=== PATIENT | female | born 1940 ===

== ENCOUNTER 2016-10-10 15:44 | Emergency (ER) | payer MEDICARE, MEDICAID ==
[2016-10-10 15:44] VITALS: BMI 39.6
[2016-10-10 16:19] VITALS: RESP 18; TEMP 97.9
--- NOTE | 2016-10-10 19:17 | C.PDOC ---
History Of Present Illness 76 year old patient, with a past medical history of arthritis, asthma, back problems, hypertension, hypercholesterolemia, hyperlipidemia, and gastritis, presents to the ED complaining of occasional dizziness and feeling lethargic. Patient denies any shortness of breath, numbness, weakness, or any other complaints at this time. Time Seen by Provider: 10/10/16 19:08 Chief Complaint (Nursing): Dizziness/Lightheaded History Per: Patient History/Exam Limitations: no limitations Onset/Duration Of Symptoms: Other (occasional) Current Symptoms Are (Timing): Still Present Fall Associated With With Symptoms: No Severity: Mild Pain Scale Rating Of: 2 Recent travel outside of the [place]: No Past Medical History Reviewed: Historical Data, Nursing Documentation, Vital Signs Vital Signs: Last Vital Signs Temp 97.9 F 10/10/16 21:10 Pulse 82 10/10/16 21:10 Resp 18 10/10/16 21:10 BP 148/74 10/10/16 21:10 Pulse Ox 96 10/10/16 22:06 - Medical History PMH: Arthritis, Asthma, Back Problems, Gastritis, HTN, Hypercholesterolemia, Hyperlipidemia Family History: States: Unknown Family Hx - Social History Hx Tobacco Use: No Hx Alcohol Use: No Hx Substance Use: No - Immunization History Hx Tetanus Toxoid Vaccination: No Hx Influenza Vaccination: No Hx Pneumococcal Vaccination: No Review Of Systems Except As Marked, All Systems Reviewed And Found Negative. Constitutional: Positive for: Other (lethargy) Respiratory: Negative for: Shortness of Breath Neurological: Positive for: Dizziness. Negative for: Weakness, Numbness, Headache Physical Exam - Physical Exam Appears: Non-toxic, No Acute Distress Skin: Warm, Dry Head: Atraumatic, Normacephalic Eye(s): bilateral: PERRL, EOMI Ear(s): Bilateral: Normal Oral Mucosa: Moist Neck: Normal ROM, Supple Chest: Symmetrical Cardiovascular: Rhythm Regular Respiratory: Normal Breath Sounds, No Rales, No Rhonchi, No Wheezing Back: Normal Inspection, No CVA Tenderness Extremity: Normal ROM Neurological/Psych: Oriented x3, Normal Speech, Normal Cognition, Normal Cranial Nerves, Normal Motor, Normal Sensation Gait: Steady ED Course And Treatment - Laboratory Results Result Diagrams: 10/10/16 19:30 10/10/16 19:30 Lab Interpretation: Normal (ua neg.) ECG: Interpreted By Me ECG Rhythm: Sinus Rhythm ECG Interpretation: Normal Rate From EC O2 Sat by Pulse Oximetry: 96 (RA) Pulse Ox Interpretation: Normal - Radiology CXR: Interpreted by Me CXR Interpretation: Yes: No Acute Disease Progress Note: Plan: EKG, Labs, Chest x-ray, Toradol Reevaluation Time: 20:18 Reassessment Condition: Improved Medical Decision Making Medical Decision Making: normal eval and w/u ? anxiety no sig physical findings. Disposition Doctor Will See Patient In The: Office Counseled Patient/Family Regarding: Studies Performed, Diagnosis - Disposition Referrals: Kody Delaney MD [Staff Provider] - Disposition: HOME/ ROUTINE Disposition Time: 20:19 Condition: GOOD Additional Instructions: Schwarz evaluacion' salio' normal hoy Sigue con Dr. Delaney didier necessario Instructions: Weakness (ED) Print Language: OCCITAN - Clinical Impression Clinical Impression: Lethargy - Scribe Statement The provider has reviewed the documentation as recorded by the Scribe Rajani Zapata Provider Attestation: All medical record entries made by the Scribe were at my direction and personally dictated by me. I have reviewed the chart and agree that the record accurately reflects my personal performance of the history, physical exam, medical decision making, and the department course for this patient. I have also personally directed, reviewed, and agree with the discharge instructions and disposition.
[2016-10-10 19:33] LABS: BASO # 0.1 K/uL (0.0-0.2); BASO % 0.9 % (0.0-2.0); EOS # 0.2 K/uL (0.0-0.7); EOS % 1.9 % (0.0-4.0); HEMATOCRIT 40.7 % (34.0-47.0); LYMPH # 1.9 K/uL (1.0-4.3); LYMPH % 23.7 % (20.0-40.0); MEAN CELL VOLUME 88.8 fL (81.0-99.0); MEAN CORPUSCULAR HGB CONC 32.7 g/dL (33.0-37.0); MEAN PLATELET VOLUME 8.2 fL (7.2-11.7); MONO # 0.5 K/uL (0.0-0.8); MONO % 6.7 % (0.0-10.0); NRBC % 0.1 % (0.0-2.0); RED CELL DISTRIBUTION WIDTH 13.5 % (11.5-14.5); WHITE BLOOD COUNT 8.1 K/uL (4.8-10.8)
[2016-10-10 19:35] LABS: RBC URINE < 1 /hpf (0-3); URINE BILIRUBIN NEGATIVE (NEGATIVE); URINE BLOOD NEGATIVE (NEGATIVE); URINE COLOR Colorless (YELLOW); URINE GLUCOSE (UA) NORMAL (Normal); URINE KETONE NEGATIVE (NEGATIVE); URINE LEUKOCYTE ESTERASE NEG Leu/uL (Negative); URINE PROTEIN NEGATIVE (NEGATIVE); URINE UROBILINOGEN NORMAL mg/dL (0.2-1.0)
[2016-10-10 19:41] LABS: CHLORIDE 100 mmol/L (98-107); SODIUM 140 mmol/L (132-148)
[2016-10-10 19:43] LABS: BILIRUBIN,TOTAL 0.3 mg/dL (0.2-1.3); GFR AFRICAN-AMERICAN > 60
[2016-10-10 19:44] LABS: ALB/GLOB RATIO 1.1 (1.0-2.1); ALKALINE PHOSPHATASE 87 U/L (38-126); ALT/SGPT 27 U/L (9-52); AST/SGOT 34 U/L (14-36); BLOOD UREA NITROGEN 12 mg/dL (7-17); CARBON DIOXIDE 30 mmol/L (22-30); GLUCOSE,RANDOM 101 mg/dL (65-105); TOTAL PROTEIN 7.6 g/dL (6.3-8.3)
[2016-10-10 19:45] LABS: CALCIUM 8.9 mg/dl (8.6-10.4)
[2016-10-10 21:10] VITALS: BP 148/74; PULSE 82
[2016-10-10 22:05] VITALS: O2SAT 96
--- NOTE | 2016-10-11 08:35 | RAD ---
PROCEDURE: CHEST RADIOGRAPH, 1 VIEW HISTORY: Shortness of breath COMPARISON: None available. FINDINGS: LUNGS: Mild venous congestion. Patchy increased markings at the left lung base may be related to prominent epicardial fat pad versus subtle atelectasis and or subtle infiltrate. Clinical correlation. Biapical pleural thickening with upper lobe granulomatous changes. PLEURA: As above. CARDIOVASCULAR: Normal. OSSEOUS STRUCTURES: No significant abnormalities. VISUALIZED UPPER ABDOMEN: Normal. OTHER FINDINGS: None. IMPRESSION: Mild venous congestion. Patchy increased markings at the left lung base may be related to prominent epicardial fat pad versus subtle atelectasis and or subtle infiltrate. Clinical correlation. Biapical pleural thickening with upper lobe granulomatous changes.
--- NOTE | 2016-10-13 08:29 | CARD ---
APPROVED REPORT EKG Measurement Heart [id number] <Conclusion> Normal sinus rhythm Normal ECG
== END 2016-10-10 21:10 | disposition home or self-care (01) ==
LOC: C.ER 15:44
DX: R53.83 Other fatigue (principal)
CPT/HCPCS: 71010; 80053; 81001; 82948; 83880; 84484; 85025; 96374; 99285; J1885

== ENCOUNTER 2017-02-18 12:30 | Emergency (ER) | payer MEDICARE, MEDICAID ==
[2017-02-18 12:31] VITALS: BMI 39.6
[2017-02-18 13:00] LABS: RBC URINE < 1 /hpf (0-3); URINE BACTERIA RARE (<OCC); URINE BILIRUBIN NEGATIVE (NEGATIVE); URINE BLOOD NEGATIVE (NEGATIVE); URINE COLOR Yellow (YELLOW); URINE GLUCOSE (UA) NORMAL (Normal); URINE KETONE NEGATIVE (NEGATIVE); URINE LEUKOCYTE ESTERASE NEG Leu/uL (Negative); URINE PROTEIN NEGATIVE (NEGATIVE); URINE UROBILINOGEN NORMAL mg/dL (0.2-1.0); WBC URINE 1 /hpf (0-5)
[2017-02-18] MEDS ORDERED: Sodium Chloride 0.9% 1,000 ML IV ONE (13:18)
[2017-02-18] MEDS ORDERED: Sodium Chloride 0.9% 1,000 ML ONE (13:24)
--- NOTE | 2017-02-18 13:26 | C.PDOC ---
History Of Present Illness 77 y/o female who presents with intermittent epigastric pain for the past 2 weeks. Also complaining of dizziness, loss of appetite. Able to eat and drink, but does not feel hungry. No fever. No change in bowel movements. Saw PMD 1 week ago, who referred her to an ENT for ear pain. History of GERD and gastritis , takes daily Omeprazole. No abnormal weight loss. PMD: Kody Delaney Time Seen by Provider: 02/18/17 13:12 Chief Complaint (Nursing): Abdominal Pain History Per: Patient History/Exam Limitations: no limitations Onset/Duration Of Symptoms: Days (x 2 weeks), Intermittent Episodes Current Symptoms Are (Timing): Still Present Location Of Pain/Discomfort: Epigastric Associated Symptoms: Loss Of Appetite Past Medical History Reviewed: Historical Data, Nursing Documentation, Vital Signs Vital Signs: Last Vital Signs Temp 98.6 F 02/18/17 12:34 Pulse 92 H 02/18/17 12:34 Resp 18 02/18/17 12:34 BP 150/72 02/18/17 12:34 Pulse Ox 97 02/18/17 14:12 - Medical History PMH: Arthritis, Asthma, Back Problems, Gastritis, GERD, HTN, Hypercholesterolemia, Hyperlipidemia, Osteoporosis Denies: Chronic Kidney Disease Family History: States: Unknown Family Hx - Social History Hx Tobacco Use: No Hx Alcohol Use: No Hx Substance Use: No - Immunization History Hx Tetanus Toxoid Vaccination: No Hx Influenza Vaccination: No Hx Pneumococcal Vaccination: No Review Of Systems Except As Marked, All Systems Reviewed And Found Negative. Constitutional: Negative for: Fever, Weight loss Gastrointestinal: Positive for: Abdominal Pain (Epigastric), Other (Loss of appetite). Negative for: Constipation Neurological: Positive for: Dizziness Physical Exam - Physical Exam Appears: Well, Non-toxic, No Acute Distress Skin: Normal Color, Warm, Dry Head: Atraumatic, Normacephalic Eye(s): bilateral: Normal Inspection, PERRL, EOMI Oral Mucosa: Moist Neck: Normal ROM, Supple Chest: Symmetrical Cardiovascular: Rhythm Regular, No Murmur Respiratory: Normal Breath Sounds, No Accessory Muscle Use Gastrointestinal/Abdominal: Normal Exam, Bowel Sounds, Soft, No Tenderness, No Guarding, No Rebound Extremity: Bilateral: Atraumatic, Normal ROM Neurological/Psych: Oriented x3, Normal Speech Gait: Steady ED Course And Treatment - Laboratory Results Result Diagrams: 02/18/17 13:34 02/18/17 13:34 Lab Interpretation: Normal ECG: Interpreted By Me ECG Rhythm: Sinus Rhythm ECG Interpretation: Normal O2 Sat by Pulse Oximetry: 97 (RA) Pulse Ox Interpretation: Normal Reevaluation Time: 14:30 Reassessment Condition: Improved (Feels better after IV fluids and Pepcid. She is ambulatory to the bathroom without difficulty.) Medical Decision Making Medical Decision Making: Time: 13:18 Plan: --EKG --CMP --Lipase --CBC w/ differential --Urinalysis --Pepcid 20 mg IV --Sodium chloride IV 1000 ml at 1000 mls/hr --Pending reevaluation Disposition Counseled Patient/Family Regarding: Studies Performed, Diagnosis, Need For Followup, Rx Given - Disposition Referrals: Kody Delaney MD [Staff Provider] - Disposition: HOME/ ROUTINE Disposition Time: 14:30 Condition: IMPROVED Additional Instructions: Encourage plenty of fluids. Prescriptions: Famotidine [Pepcid] 20 mg PO BID #60 tab Instructions: Gastritis (ED), Dizziness (ED) Forms: [facility] (O[place]i) Print Language: GREENLANDIC - Clinical Impression Clinical Impression: Gastritis, Dizziness - Scribe Statement The provider has reviewed the documentation as recorded by the Chapito Diallo All medical record entries made by the Drewibilan were at my direction and personally dictated by me. I have reviewed the chart and agree that the record accurately reflects my personal performance of the history, physical exam, medical decision making, and the department course for this patient. I have also personally directed, reviewed, and agree with the discharge instructions and disposition.
[2017-02-18 13:45] LABS: BASO % 0.4 % (0.0-2.0); EOS # 0.1 K/uL (0.0-0.7); EOS % 1.2 % (0.0-4.0); HEMATOCRIT 40.4 % (34.0-47.0); LYMPH # 1.4 K/uL (1.0-4.3); LYMPH % 22.9 % (20.0-40.0); MEAN CORPUSCULAR HEMOGLOBIN 29.6 pg (27.0-31.0); MEAN CORPUSCULAR HGB CONC 33.2 g/dL (33.0-37.0); MEAN PLATELET VOLUME 7.9 fL (7.2-11.7); MONO # 0.6 K/uL (0.0-0.8); MONO % 9.3 % (0.0-10.0); RED CELL DISTRIBUTION WIDTH 14.3 % (11.5-14.5); WHITE BLOOD COUNT 6.1 K/uL (4.8-10.8)
[2017-02-18 13:50] LABS: CHLORIDE 99 mmol/L (98-107); POTASSIUM 4.1 mmol/L (3.6-5.2); SODIUM 143 mmol/L (132-148)
[2017-02-18 13:52] LABS: BILIRUBIN,TOTAL 0.5 mg/dL (0.2-1.3); CARBON DIOXIDE 30 mmol/L (22-30); GFR AFRICAN-AMERICAN > 60
[2017-02-18 13:53] LABS: ALB/GLOB RATIO 0.9 (1.0-2.1); ALKALINE PHOSPHATASE 98 U/L (38-126); ALT/SGPT 29 U/L (9-52); AST/SGOT 25 U/L (14-36); BLOOD UREA NITROGEN 9 mg/dL (7-17); CALCIUM 9.3 mg/dl (8.6-10.4); GLUCOSE,RANDOM 120 mg/dL (65-105); TOTAL PROTEIN 7.3 g/dL (6.3-8.3)
[2017-02-18 14:40] VITALS: BP 155/78; PULSE 77; RESP 20; TEMP 98.3; O2SAT 95
--- NOTE | 2017-02-20 12:31 | CARD ---
APPROVED REPORT EKG Measurement Heart [id number] <Conclusion> Normal sinus rhythm Normal ECG
== END 2017-02-18 14:44 | disposition home or self-care (01) ==
LOC: C.ER 12:30
DX: K29.70 Gastritis, unspecified, without bleeding (principal); R42 Dizziness and giddiness
CPT/HCPCS: 80053; 81001; 83690; 85025; 93005; 96361; 96374; 99285; J7040